=== PATIENT | male | born 1950 | race Caucasian/White ===

== ENCOUNTER 2022-08-01 12:02 | Outpatient (CLI) | payer MEDICARE, SELFPAY ==
--- NOTE | 2022-08-01 12:20 | CT_ITS ---
WS: [id number] CT ABDOMEN AND PELVIS NONCONTRAST HISTORY: ABD PAIN LLQ TECHNIQUE: Imaging performed through the abdomen and pelvis. Coronal and sagittal reformats are submi tted. All CT scans at [facility] use at least one of these dose optimization techniques: auto mated exposure control; mA and/or kV adjustment per patient size (includes targeted exams where dose is matched to clinical indication); or iterative reconstruction. DLP: 918.69 mGy.cm COMPARISON: None available. Lower thorax: Hyperexpanded lung bases from emphysema. Heart is normal size. No pericardial effusion. Liver: Normal size liver. No bile duct dilatation. Gallbladder: Normal gallbladder. Pancreas: Normal size and attenuation. Normal pancreatic duct. No pancreatitis or mass. Spleen: Small spleen. May be autoinfarcted. Adrenal glands: There is mild thickening of the RIGHT adrenal gland. LEFT adrenal gland is enlarged a nd nodular measuring 2.2 x 2.1 cm. Hounsfield units are negative. Right kidney: Normal size kidney with no mass or hydronephrosis. Left kidney: Normal size kidney with no mass or hydronephrosis. Aorta: Moderate to severe atherosclerosis abdominal aorta. No aneurysm. Atherosclerosis continues int o the common iliac arteries. No free fluid, intraperitoneal air or significant lymphadenopathy. GI tract: Nondistended stomach. No small bowel obstruction. Diffuse pancolonic diverticulosis. No sandra dence for acute diverticulitis. Normal appendix. Abdominal wall: Negative. No hernia. Pelvis: Urinary bladder is minimally distended. No free fluid or adenopathy in the pelvis. Prostate i s very minimally enlarged. Fat-containing inguinal canals. Osseous structures: L2 retrolisthesis by [address]/CT abdomen pelvis wo con [id number] IMPRESSION: 1. No acute abdominal or pelvic abnormalities are identified. 2. Pancolonic diverticulosis. No evidence for acute diverticulitis. 3. LEFT adrenal adenoma. 4. No ascites or adenopathy. 5. No renal obstruction. 6. Normal appendix.
== END 2022-08-01 12:03 | disposition home or self-care (01) ==
PROVIDERS: PCP Internal Medicine; Visit Provider Internal Medicine
DX: K57.90 Diverticulosis of intestine, part unspecified, without perforation or abscess without bleeding (principal); D35.00 Benign neoplasm of unspecified adrenal gland
CPT/HCPCS: 74176

== ENCOUNTER → 2023-09-11 16:02 | Outpatient (BNVA) | payer MEDICARE, SELFPAY | PROVIDERS: PCP Internal Medicine; Referring Provider Internal Medicine; Visit Provider Specialist | DX: G31.84 Mild cognitive impairment of uncertain or unknown etiology (principal) | CPT/HCPCS: 96116; 99205 ==